=== PATIENT | female | born 1995 ===

== ENCOUNTER 2017-01-03 11:27 | Emergency (ER) | payer OTHER ==
[2017-01-03 11:33] VITALS: BP 121/68; PULSE 97; RESP 16; TEMP 98.1; O2SAT 99
[2017-01-03] MEDS ORDERED: cefTRIAXone (Rocephin) 250 mg Inj IM ONE (12:36)
[2017-01-03] MEDS ORDERED: cefTRIAXone (Rocephin) 250 mg Inj ONE (12:55)
[2017-01-03] MEDS ORDERED: Sterile Water 10 ML IV ONE (12:55)
--- NOTE | 2017-01-03 13:19 | ED PDOC ---
HPI: General Adult Time Seen by Provider: 01/03/17 11:37 Chief Complaint (Nursing): Female Genitourinary History Per: Patient Additional Complaint(s): Pt. states since Saturday she's had vaginal discomfort and pruritus with thick green vaginal discharge. Reports that she began using monistat 2 days ago with moderate relief but she wanted to be sure it was not an STD. Pt. is sexually active with only 1 partner and participates in unprotected sex. Denies dysuria, hematuria, dyspareunia, hx of STDs, vaginal bleeding, abdominal pain, pelvic pain. Past Medical History Reviewed: Historical Data, Nursing Documentation, Vital Signs Vital Signs: Last Vital Signs Temp 98.1 F 01/03/17 11:29 Pulse 97 H 01/03/17 11:29 Resp 16 01/03/17 11:29 BP 121/68 01/03/17 11:29 Pulse Ox 99 01/03/17 11:29 - Surgical History Surgical History: Appendectomy - Family History Family History: States: No Known Family Hx - Home Medications Home Medications: Ambulatory Orders Medication Instructions Recorded Azithromycin [Zithromax] 250 mg PO DAILY #6 tab 07/19/16 Benzonatate 200 mg PO TID PRN #20 capsule 07/19/16 Oseltamivir Phosphate [Tamiflu] 75 mg PO BID #10 capsule 07/19/16 Fluconazole [Diflucan] 150 mg PO ONCE #1 tab 01/03/17 - Allergies Allergies/Adverse Reactions: Allergies Allergy/AdvReac Type Severity Reaction Status Date / Time No Known Allergies Allergy Verified 07/19/16 12:18 Review of Systems ROS Statement: Except As Marked, All Systems Reviewed And Found Negative Genitourinary Female: Positive for: Vaginal Discharge Physical Exam - Physical Exam Appears: Positive for: Well, Non-toxic, No Acute Distress Skin: Positive for: Normal Color, Warm. Negative for: Rash Eye Exam: Positive for: Normal appearance Gastrointestinal/Abdominal: Positive for: Normal Exam, Soft. Negative for: Tenderness Pelvic Exam: Positive for: No Cerv. 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 Negative for: External Exam Normal (mild maceration noted to R labia), Active Bleeding, Blood, Cervicitis, Lesions, Mass, Tender W/Cervical Motion, Tender Adnexa, Tender Uterus, Ulcers Neurologic/Psych: Positive for: Alert, Oriented - Laboratory Results Urine POC: Negative Urine dip results: Positive for: Leukocyte Esterase (small). Negative for: Blood, Nitrate, Ketones, Glucose, Bilirubin, Protein - ECG O2 Sat by Pulse Oximetry: 99 - Progress ED Course And Treament: Rocephin 250mg IM, zithromax 1000mg PO ordered. Urine culture, GC/chlamydia cultures ordered. Disposition - Clinical Impression Clinical Impression: Vaginitis - Patient ED Disposition Is Patient to be Admitted: No - Disposition [facility] Disposition: Routine/Home Disposition Time: 13:22 Condition: STABLE Prescriptions: Fluconazole [Diflucan] 150 mg PO ONCE #1 tab Instructions: Vaginitis (ED) Forms: [facility] (Liberian) Print Language: BELARUSIAN
== END 2017-01-03 13:05 | disposition home or self-care (01) ==
LOC: H.ER 11:27
DX: N77.1 Vaginitis, vulvitis and vulvovaginitis in diseases classified elsewhere (principal); A74.9 Chlamydial infection, unspecified
CPT/HCPCS: 81025; 87086; 87491; 87591; 96372; 99282; J0696